=== PATIENT | male | born 1985 | race Caucasian/White ===

== ENCOUNTER → 2021-12-20 | Day surgery (SDC) | payer OTHER ==
[~2021-12-20] MED LIST: Dexamethasone 4 MG/ML SDV ONE; Flumazenil 0.1 MG/ML 10 ML MDV ONE; Ketorolac 30 MG/ML SDV ONE; Lactated Ringers 1,000 ML IV SCH; Lidocaine 1% with EPINEPHrine 1:100,000 20 ML MDV ONE; Lidocaine 2% 5 ML SDV ONE; Midazolam 1 MG/ML 2 ML SDV ONE; Naloxone 2 MG/2 ML Syringe ONE; Ondansetron 4 MG/2 ML SDV ONE; Propofol 200 MG/20 ML SDV ONE; fentaNYL 100 MCG/2 ML SDV ONE
== END ==
LOC: CC.SDS 08:44
PROVIDERS: ATTEND Surgery
DX: L72.0 Epidermal cyst (principal); Z98.890 Other specified postprocedural states
CPT/HCPCS: 00300; J1100; J1885; J2250; J2310; J2405; J2704; J3010; J7120

== ENCOUNTER 2025-02-08 01:07 | Emergency (ER) | payer SELFPAY ==
[2025-02-08] MEDS ORDERED: Ondansetron 4 MG/2 ML SDV IVPUSH PRN ×2 (01:59→03:01)
[2025-02-08] MEDS: Sodium Chloride 0.9% 1,000 ML IV ONE (02:09)
[2025-02-08] MEDS: fentaNYL 50 MCG/ML SDV IVPUSH ONE (02:14)
[2025-02-08] MEDS: LORazepam 2 MG/ML SDV IVPUSH ONE (02:15)
[2025-02-08] MEDS ORDERED: LORazepam 2 MG/ML SDV IVPUSH PRN (03:01)
[2025-02-08] MEDS: diphenhydrAMINE 50 MG/ML SDV IVPUSH ONE (03:05)
[2025-02-08] MEDS: Haloperidol Lactate 5 MG/ML SDV IVPUSH ONE (03:05)
[2025-02-08] MEDS ORDERED: Haloperidol Lactate 5 MG/ML SDV IVPUSH SCH ×2 (03:15→11:00)
[2025-02-08] MEDS: Diphtheria,Pertussis(Acell),Tetanus Vaccine 0.5 ML Syringe IM ONE (03:32)
[2025-02-08] MEDS: Haloperidol Lactate 5 MG/ML SDV ONE (03:57)
[2025-02-08] MEDS ORDERED: Haloperidol Lactate 5 MG/ML SDV IVPUSH PRN (04:50)
[2025-02-08] MEDS: Sertraline 25 MG Tab PO STA (10:01)
== END 2025-02-08 11:00 | disposition home or self-care (01) ==
LOC: CC.ED 01:07
DX: S01.01XA Laceration without foreign body of scalp, initial encounter (principal); F10.120 Alcohol abuse with intoxication, uncomplicated; F17.210 Nicotine dependence, cigarettes, uncomplicated; Z79.899 Other long term (current) drug therapy; W01.198A Fall on same level from slipping, tripping and stumbling with subsequent striking against other object, initial encounter; Y93.89 Activity, other specified; Y90.9 Presence of alcohol in blood, level not specified
CPT/HCPCS: 12002; 70450; 82947; 90471; 90715; 96361; 96374; 96375; 99283; 99284-25; A9270-GY; J1200; J1630; J2060; J3010; J7030